=== PATIENT | female | born 1940 ===

== ENCOUNTER 2019-06-17 11:08 | Emergency (ER) | payer OTHER ==
[~2019-06-17] VITALS: Ht 152.4 cm; Wt 62.6 kg
[2019-06-17] MEDS ORDERED: PROZAC20 MG PO (11:38)
[2019-06-17] MEDS ORDERED: CRESTOR20 MG PO (11:38)
[2019-06-17] MEDS ORDERED: TRICOR48 MG PO (11:38)
[2019-06-17] MEDS ORDERED: FLAGYL500MG PO (14:45)
[2019-06-17] MEDS ORDERED: NAPROXEN500 MG PO (14:45)
[2019-06-17] MEDS ORDERED: CIPRO500 MG PO (14:45)
[2019-06-17] MEDS ORDERED: INTESTINEX680 M1 PO (14:45)
[2019-06-17] MEDS ORDERED: PROTONIX40 MG PO (14:45)
== END 2019-06-17 16:08 | disposition home or self-care (01) ==
LOC: ER 11:08
DX: R10.30 Lower abdominal pain, unspecified (principal); K57.32 Diverticulitis of large intestine without perforation or abscess without bleeding

== ENCOUNTER 2020-12-30 20:11 | Inpatient (IN) | payer OTHER ==
[~2020-12-30] VITALS: Ht 157.5 cm; Wt 56.7 kg
[~2020-12-30 20:11] MED LIST: CIPRO500 MG PO; CRESTOR20 MG PO; FLAGYL500MG PO; INTESTINEX680 M1 PO; NAPROXEN500 MG PO; PROTONIX40 MG PO; PROZAC20 MG PO; TRICOR48 MG PO
== END 2021-01-02 09:56 | disposition home or self-care (01) | DRG 69 ==
LOC: ER 20:11 → MEDJ 12-31 12:45 → SEC-K 12-31 12:45 → MEDJ 12-31 14:16
PROVIDERS: ADMIT Internal Medicine; ATTEND Internal Medicine
PROC: 4A12X4Z Monitoring of Cardiac Electrical Activity, External Approach (ICD-10-PCS; principal; 2020-12-31)
PROC: B24BZZZ Ultrasonography of Heart with Aorta (ICD-10-PCS; 2020-12-31)
PROC: BW38ZZZ Magnetic Resonance Imaging (MRI) of Head (ICD-10-PCS; 2020-12-31)
PROC: BW28ZZZ Computerized Tomography (CT Scan) of Head (ICD-10-PCS; 2020-12-31)
PROC: B348ZZZ Ultrasonography of Bilateral Internal Carotid Arteries (ICD-10-PCS; 2020-12-31)
DX: G45.8 Other transient cerebral ischemic attacks and related syndromes (principal); R42 Dizziness and giddiness; E86.0 Dehydration; E87.8 Other disorders of electrolyte and fluid balance, not elsewhere classified; I10 Essential (primary) hypertension; E78.49 Other hyperlipidemia; Z20.822 Contact with and (suspected) exposure to COVID-19
CPT/HCPCS: 70544